=== PATIENT | male | born 1955 | race Caucasian/White ===

== ENCOUNTER → 2023-12-11 | Outpatient (REF) | payer OTHER, SELFPAY | LOC: DHSLP | PROVIDERS: ATTENDING PHYSICIAN Internal Medicine Critical Care Medicine; FAMILY PHYSICIAN Family Medicine | DX: G47.33 Obstructive sleep apnea (adult) (pediatric) (principal); R09.02 Hypoxemia | CPT/HCPCS: 95800 ==

== ENCOUNTER → 2024-01-08 08:26 | Outpatient (REF) | payer OTHER, SELFPAY | LOC: DHCBC/DCA 08:26 | PROVIDERS: ATTENDING PHYSICIAN Internal Medicine Cardiovascular Disease; FAMILY PHYSICIAN Family Medicine | DX: R07.89 Other chest pain (principal); I25.10 Atherosclerotic heart disease of native coronary artery without angina pectoris | CPT/HCPCS: 78452; 93017; A9500 ==

== ENCOUNTER → 2024-06-07 12:12 | Outpatient (REF) | payer OTHER, SELFPAY | LOC: HWRAD 12:12 | PROVIDERS: ATTENDING PHYSICIAN Nurse Practitioner Adult Health; FAMILY PHYSICIAN Family Medicine | DX: C34.91 Malignant neoplasm of unspecified part of right bronchus or lung (principal); R91.1 Solitary pulmonary nodule | CPT/HCPCS: 71250 ==

== ENCOUNTER → 2024-08-11 12:28 | Outpatient (REF) | payer OTHER, SELFPAY | LOC: HWRAD 12:28 | PROVIDERS: ATTENDING PHYSICIAN Nurse Practitioner Adult Health; FAMILY PHYSICIAN Family Medicine | DX: R91.1 Solitary pulmonary nodule (principal) | CPT/HCPCS: 71250 ==

== ENCOUNTER 2024-08-19 14:41 | Emergency (ER) | payer OTHER, SELFPAY ==
[2024-08-19 14:46] VITALS: BP 154/60
[2024-08-19 15:02] LABS: % Basophils 0.4 % (0-2); % Eosinophils 2.5 % (0-6); % Immature Granulocytes 0.4 % (0-0.5); % Lymphocytes 19.2 % (20.5-51.1); % Monocytes 9.8 % (1.7-9.3); % Neutrophils 67.7 % (42.2-75.2); Absolute Eosinophils 0.2 10^3/uL (0-0.7); Absolute Lymphocytes 1.3 10^3/uL (1.2-3.4); Absolute Monocytes 0.7 10^3/uL (0.1-0.6); Absolute Neutrophils 4.6 10^3/uL (1.4-6.5); Hematocrit 32.8 % (39.0-52.0); Hemoglobin 11.4 g/dL (13.0-18.0); Mean Corp Hgb Conc. 34.8 g/dL (33.0-37.0); Mean Corpuscular Hgb 33.7 pg (27.0-31.0); Mean Platelet Volume 8.6 fL (7.4-10.4); Nucleated Red Blood Cells % 0 % (-); Platelet Count 240 10^3/uL (130-400); Red Blood Cell Count 3.38 10^6/uL (4.70-6.10); Red Cell Dist. Width 13.2 % (11.5-14.5); White Blood Cell Count 6.8 10^3/uL (4.8-10.8)
[2024-08-19 15:20] LABS: ALT (SGPT) 20 U/L (0-50); AST (SGOT) 21 U/L (17-59); Albumin 4.2 g/dl (3.5-5.0); Alkaline Phosphatase 76 U/L (38-126); Blood Urea Nitrogen 8 mg/dl (9-20); Calcium 9.1 mg/dl (8.4-10.2); Carbon Dioxide 26 mmol/L (22-30); Chloride 98 mmol/L (98-107); Glucose 97 mg/dl (70-99); Lipase 60 U/L (23-300); Potassium 4.5 mmol/L (3.5-5.1); Sodium 132 mmol/L (135-145); Total Bilirubin 0.5 mg/dl (0.2-1.3); Total Protein 6.7 g/dl (6.3-8.2); eGFR > 60.00
--- NOTE | 2024-08-19 16:36 | ED.GENMED ---
History of Present Illness
General
Chief Complaint: Abdominal Symptoms
Time Seen by Provider: 08/19/24 16:35
History of Present Illness
History of Present Illness:
TIME OF INITIAL ENCOUNTER: 4:40 PM
HPI: The patient presents with a lump to the left groin. This has been getting a little bit worse over the last several days. When he lays down flat his symptoms go away. He has not had any vomiting. He also reports testicular pain since 1987.
EXAM:
GENERAL: Well appearing in no distress
HEENT: Moist oral mucosa
CARDIOVASCULAR: No murmurs, normal heart rate, regular rhythm, No chest wall tenderness
PULMONARY: No respiratory distress, breath sounds are clear and equal
ABDOMEN: Soft with no peritoneal signs, no tenderness, there is soft tissue prominence in the left inguinal region consistent with a fat-containing hernia
NEUROLOGIC: Excellent strength all extremities, no coordination deficits
PSYCHIATRIC: Appropriate mental status, normal insight and judgement
EXTREMITIES: Nontender, no edema, moves all extremities equally
SKIN: No rash, no lesions
NUMBER AND COMPLEXITY OF PROBLEMS ADDRESSED AT THE ENCOUNTER
� Chronic conditions affecting care: CAD, high blood pressure, hyperlipidemia, Marquez's esophagus/GERD, smoker
� Acute Exacerbation and/or Progression of Chronic Illness: This is an acute problem
� Differential Diagnosis includes: Inguinal hernia, no evidence for incarceration/strangulation based on physical examination, no evidence for bowel obstruction
AMOUNT AND/OR COMPLEXITY OF DATA TO BE REVIEWED AND ANALYZED
� I performed an independent evaluation of and my interpretation is:
EKG:
CT:
X-rays:
Laboratory Studies: White count normal, hemoglobin 11.4,, LFTs and lipase are normal
Other:
� Review of other/old records: I reviewed records, the patient was taken to the OR for appendectomy in 2020
� Clinical information was obtained by an independent historian: None needed
� Prescriptions/Medications Considered but not given:
� Further testing considered but not performed: Considered CT imaging however the patient has no evidence for bowel obstruction and has a soft reducible left inguinal hernia.
RISK OF COMPLICATIONS AND/OR MORBIDITY OR MORTALITY OF PATIENT MANAGEMENT
� Social determinants of health affecting care: Lives at home
� Discussion with other providers: Notified Dr. Alarcon of patient's presentation to arrange close outpatient follow-up[facility] and he is to call the office in the morning prior to discharge, I
� Escalation of care including admission/observation vs risk of discharge considered: The patient has a soft left inguinal hernia. There is no evidence for bowel obstruction based on exam and history. His white blood cell count
is normal.
ANY OTHER UPDATES:
Encouraged patient to follow-up with general surgeon�currently hernia is mild and very soft and is essentially reduced, encouraged to return here if worse or other concerns
Past History
Past History
ED Past Medical History: CAD, HTN, Hypercholesterolemia and Other
Social History
Tobacco: Smoker
Personal:
Living: with family
Employment: Employed
Phy Exam
Physical Exam
Physical Exam:
See HPI
Course
Orders/Labs/Results
Orders:
Orders
08/19/24 14:57
Complete Blood Count/With Diff Urgent
Comprehensive Metabolic Panel Urgent
Lipase Urgent
Abnormal Lab Results
08/19/24
14:57
RBC 3.38 L 10^6/uL
(4.70-6.10)
Hgb 11.4 L g/dL
(13.0-18.0)
Hct 32.8 L %
(39.0-52.0)
MCV 97.0 H fL
(80.0-94.0)
MCH 33.7 H pg
(27.0-31.0)
Absolute Monos (auto) 0.7 H 10^3/uL
(0.1-0.6)
Lymphocytes % 19.2 L %
(20.5-51.1)
Monocytes % 9.8 H %
(1.7-9.3)
Sodium 132 L mmol/L
(135-145)
BUN 8 L mg/dl
(9-20)
08/19/24 14:57
08/19/24 14:57
Vital Signs
Initial and Last Documented VS:
Initial Vital Signs
Temp Pulse Resp BP Pulse Ox
36.7 C 66 16 154/60 98
08/19/24 14:46 08/19/24 14:46 08/19/24 14:46 08/19/24 14:46 08/19/24 14:46
Last Documented Vital Signs
Temp Pulse Resp BP Pulse Ox
36.7 C 66 16 154/60 98
08/19/24 14:46 08/19/24 14:46 08/19/24 14:46 08/19/24 14:46 08/19/24 14:46
*Critical Care Note
Total Time (30-74mins, 75-104mins- exclusive of procedures): Not Applicable
ED Attending Note
-
Portions of this chart may have been created with voice recognition software.� Occasional wrong word or��sound alike� substitutions may have occurred due to the inherent limitations of voice recognition software.
Discharge Plan
Departure
Patient Disposition: Home (Routine Discharge)
Date of Disposition: 08/19/24
Time of Disposition: 17:16
Patient with high blood pressure during this ER visit?: Yes
Discharge Problem:
Inguinal hernia
Instructions: Groin hernias
Prescriptions:
No Action
carvedilol 3.125 MG tablet
3.125 mg PO BID
ascorbic acid (vitamin C) [Vitamin C] 500 MG tablet
500 mg PO DAILY
jzashdqw-mbu-BJ-lycopen-lutein [Centrum Silver] 1 EACH tablet
1 tab PO DAILY
tamsulosin 0.4 MG capsule
0.4 mg PO DAILY
aspirin 81 MG tablet,chewable
162 mg PO DAILY
atorvastatin 40 MG tablet
80 mg PO QPM
lisinopril 20 MG tablet
20 mg PO DAILY
oxdqjdznfz-mgmztdslalkza-lyxd [Fioricet] 1 EACH capsule
1 ea PO Q4HPRN PRN (Reason: headaches)
bupropion HCl [Wellbutrin SR] 150 MG tablet sustained-release 12 hr
150 mg PO DAILY
tramadol 50 MG tablet
50 mg PO DAILYPRN PRN (Reason: neck pain)
famotidine [Acid Controller] 20 MG tablet
20 mg PO DAILY
svivqqtnipv-yuqpkhqma-qidvlyzn [Trelegy Ellipta] 1 EACH blister with device
1 ea IH DAILY
Referrals:
Amos Alarcon MD [Active] - Tomorrow
Javan Cortez DO [Family Provider] -
Activity Restrictions/Additional Instructions:
I do feel a reducible soft left inguinal hernia�I therefore spoke to. Call his office tomorrow morning and let them know that the ER doctor did notify Dr. Alarcon and asked you to call his office to arrange follow-up. Return here if you have
worsening of your symptoms or if the hernia becomes 'stuck out'. Try to lay down frequently and you can initially try ice to the affected area if it starts to bulge out again. If you cannot get it to go back in, you must return here. Dr. Alarcon
also recommend that you get a truss belt/hernia belt�you can try to look for one of these either online or possibly at a local pharmacy.
Interventions
Interventions:
*Risk Screen - Suicide Last Done: 08/19/24 14:46
*General Assessment Last Done: 08/19/24 18:42
*Neglect/Abuse Screening Last Done: 08/19/24 14:46
*ED COVID-19 Vaccine History Last Done: 08/19/24 18:42
*Nursing Disposition Last Done: 08/19/24 18:46
HO-Tvoyli-Jpwqfcotru Assessment Last Done: 08/19/24 18:42
Discharge Date and Time
Discharge Date/Time: 08/19/24 18:47
Print Language: ZAMBIAN
== END 2024-08-19 18:47 | disposition home or self-care (01) ==
LOC: EMR 14:41
PROVIDERS: Student in an Organized Health Care Education/Training Program; EMERGENCY PHYSICIAN Emergency Medicine; FAMILY PHYSICIAN Family Medicine
DX: K40.90 Unilateral inguinal hernia, without obstruction or gangrene, not specified as recurrent (principal); I25.10 Atherosclerotic heart disease of native coronary artery without angina pectoris; I10 Essential (primary) hypertension; E78.00 Pure hypercholesterolemia, unspecified; F17.200 Nicotine dependence, unspecified, uncomplicated
CPT/HCPCS: 99283; 80053; 83690; 85025

== ENCOUNTER 2024-09-21 06:06 | Day surgery (SDC) | payer OTHER, SELFPAY ==
[2024-09-21] VITALS (13 sets, daily range): BP systolic 119–150; BP diastolic 60–82; BMI 29.8
[2024-09-21] MEDS: NORMOSOL-R/PLASMALYTE-A 1000 IV (06:45)
[2024-09-21] MEDS: TYLENOL 1000 MG PO (06:45)
--- NOTE | 2024-09-21 07:32 | W.SUR.PREOP ---
Pre-Operative Surgical Note
-
I have examined this patient prior to the performance of the scheduled procedure.
The patient's condition is unchanged from the time of the current History and
Physical and the patient is able to undergo the scheduled procedure.
--- NOTE | 2024-09-21 10:32 | W.IMMPOSTOP ---
Surgical Immed Post Op Note
-
Primary Surgeon: Amos Alarcon MD
Assisting Surgeon: None
Pre-op Diagnosis: Bilateral inguinal hernias
Post-op Diagnosis: Bilateral inguinal hernias, omental mass
Procedure Performed:
1. Robotic bilateral inguinal hernia repair with mesh
2. Excision of omental mass
Anesthesia Type: General
Specimen / Cultures:
1. Left cord lipoma x 2
2. Omental mass
Estimated Blood Loss: 7 cc
Complications: None
Operative Findings: Bilateral inguinal hernias. Left: Plastered over the inguinal space taken down with the peritoneal flap. There was a very large indirect inguinal hernia from a very large cord lipoma that appeared to be primarily emanating from
the retroperitoneal fat. This was reduced and excised as far back as possible without injuring the main blood supply to the testicles. There is also an additional smaller more standard cord lipoma that was excised completely. On the right side
multiple small defects were identified including small indirect defect, direct defect and femoral defect. A critical view of the MPO was achieved bilaterally and then reinforced with large 3D max uncoated polypropylene mesh. After closure of the
flaps, an omental mass that had been identified on entry was excised. Unclear if this was necrotic fat versus potentially a fecalith from his prior appendectomy surgery.
--- NOTE | 2024-09-21 10:38 | OR.RPT ---
Addendum entered and electronically signed by Amos Alarcon MD 09/27/24 09:04:
Date of operation should read 09/21/2024
Original Note:
Operative Report
Operative Report
Patient Name: Nacho Paz
: 1955
Date of Operation: 05/21/2025
Preoperative Diagnosis: Bilateral inguinal hernias
Postoperative Diagnosis:Bilateral inguinal hernias, omental mass
Procedure(s):
1. Robotic bilateral inguinal Hernia Repair with mesh, (NICOLE approach)
2. Excision of omental mass
Surgeon(s):
Dr. Alarcon
Kiln Cleaner(s):
NICHOL Lemon
Anesthesia: General
Estimated Blood Loss: 7 cc
Urine Output: None
Drains/Lines/Implants: Large 3D Max Bard mid weight uncoated polypropylene mesh x 2
Specimens:
1. Left cord lipoma x 2
2. Omental mass
Indication for surgery: The patient has a history of groin pain and noted on exam to have bilateral inguinal Hernia(s). Following review of therapeutic options they have elected to undergo a minimally invasive repair.
Operative Findings: Bilateral inguinal hernias noted. On the left the sigmoid colon was plastered over the inguinal space, this was taken down with the peritoneal flap. There was a very large indirect inguinal hernia from a very large cord lipoma
that appeared to be primarily emanating from the retroperitoneal fat. This was reduced and excised as far back as possible without injuring the main blood supply to the testicles. There is also an additional smaller more standard cord lipoma that
was excised completely. On the right side multiple small defects were identified including small indirect defect, direct defect and femoral defect. A critical view of the MPO was achieved bilaterally and then reinforced with large 3D max uncoated
polypropylene mesh. After closure of the flaps, an omental mass that had been identified on entry was excised. Unclear if this was necrotic fat versus potentially a fecalith from his prior appendectomy surgery.
Details of the operation:
The patient was brought to the Operating Room and placed in the supine position with the arms tucked. IV antibiotics were infused and Venodyne stockings placed. Following uneventful induction of general endotracheal anesthesia, the abdomen was
prepped and draped in the usual sterile fashion. The abdomen was entered using a Veress technique which required 1 pass, pneumoperitoneum to 15 mmHg was obtained without difficulty. An 8mm trochar was passed through the abdominal wall roughly 20 cm
cephalad to the inguinal canal. We then confirmed that no inadvertent injury was made while passing the trocar or Veress needle. We then placed two additional 8 mm ports in the left upper and right upper quadrants. We then docked the robot with a
Prograsper in the left hand port and monopolar scissors in the right. On the left no obvious hernia was visible as the sigmoid colon was plastered over the left inguinal space. On the right side there was multiple defects that could be noted
including an indirect and direct defect. We also noticed small simpson-brown 1-1/2 to 2 cm mass on the omentum of unclear etiology on the left side. We then began by creating a flap at the level of the ASIS laterally working our way medially to the
medial umbilical fold. Staying onto the peritoneum we were able to circumferentially dissect around the hernia sac and and peel it off of the underlying spermatic cord and testicular vessels, taking care to preserve them. Medially we identified
the midline pubis as well as William's ligament and ensured to dissect 2 cm below the pubic rim over the bladder. After exposure of the entire myopectineal orifice we identified and reduced: A medium sized indirect inguinal hernia, no direct
inguinal hernia, no femoral hernia, and 2 cord lipomas 1 small thin 1 and another very large emanating from the retroperitoneum that was reduced back to its takeoff vessels and ligated with 3 will Weck clips.
We then repeated the same dissection on the right side. He here we identified a small indirect defect as well as a direct defects. There is also a small femoral defect containing fat from the iliac tissue that was reduced slightly but could not be
excised due to its proximity to the iliac vessels. After achieving the critical view of the MPO bilaterally we then fixated two large 3D max mesh with a 2-0 Vicryl stitches at coopers medially and superior laterally. The flap was then closed with
a running 2-0 barbed monocryl suture ensuring that the tail was cut flush with the medial fat pad so that no barbs were exposed. During the closure of the flap an Angiocath was inserted and 20 cc of quarter percent Marcaine was instilled. The area
in the flap cavity was then evacuated of air confirming that the mesh was flush and there were no folds. A small rent in the peritoneum was noted and closed with 2-0 Vicryl. We then turned our attention to the small omental mass that seemed almost
embedded in the mesentery. This was carefully excised and removed along with the cord lipoma specimens using a 5 mm Endo Catch bag. All needles and instruments were then removed and the robot was undocked. The abdomen was then desufflated, and
pneumoperitoneum evacuated. All skin sites were then closed with 4-0 Monocryl followed by Dermabond. Counts were correct and overall, the patient tolerated the procedure well and was taken to the Recovery Room postoperatively in stable condition.
I was the attending physician and performed the procedure with assistance of the PA above. The assistance of NICHOL Lemon was required due to the complexity of the procedure. During the procedure Lindsey assisted with port placement, instrument
and needle exchanges, and closure of the wound. I was present for all portions of the case, excluding skin closure.
Amos Alarcon MD
--- NOTE | 2024-09-21 11:54 | SUR.PHASEII ---
patient comfortable, taking po liquids, vss, aware that he needs to void prior to discharge. Also advised to use CPAP with any rest periods today.
--- NOTE | 2024-09-21 12:15 | SUR.PHASEI ---
Reviewed teaching, Dr Alarcon visits, explained surgery and and plan of care.
== END 2024-09-21 13:15 | disposition home or self-care (01) ==
LOC: SDS 06:06
PROVIDERS: ATTENDING PHYSICIAN Surgery
DX: K40.20 Bilateral inguinal hernia, without obstruction or gangrene, not specified as recurrent (principal); K63.89 Other specified diseases of intestine
CPT/HCPCS: 49650; 88304; 88305; 88311; C1781

== ENCOUNTER → 2024-10-11 08:17 | Outpatient (REF) | payer OTHER, SELFPAY | LOC: HWRCS 08:17 | PROVIDERS: ATTENDING PHYSICIAN Internal Medicine Cardiovascular Disease; FAMILY PHYSICIAN Family Medicine | DX: I25.10 Atherosclerotic heart disease of native coronary artery without angina pectoris (principal) | CPT/HCPCS: 93306 ==

== ENCOUNTER → 2024-11-08 11:52 | Outpatient (REF) | payer OTHER, SELFPAY | LOC: HWRAD 11:52 | PROVIDERS: ATTENDING PHYSICIAN Internal Medicine Critical Care Medicine; FAMILY PHYSICIAN Family Medicine | DX: C34.91 Malignant neoplasm of unspecified part of right bronchus or lung (principal); J21.9 Acute bronchiolitis, unspecified | CPT/HCPCS: 71250 ==

== ENCOUNTER 2025-02-01 01:05 | Emergency (ER) | payer OTHER, SELFPAY ==
[2025-02-01 01:07] VITALS: BP 90/64
[2025-02-01 02:17] VITALS: BMI 29.0
[2025-02-01 02:30] VITALS: BP 125/62
--- NOTE | 2025-02-01 02:30 | ED.GENMED ---
History of Present Illness
General
Chief Complaint: Foreign Body Removal
Source: patient
Exam Limitations: none
Time Seen by Provider: 02/01/25 02:18
Nursing documentation reviewed up to this point in time: agreed with
History of Present Illness
History of Present Illness:
Patient is a 69-year-old male who presents to the emergency department with concerns of a bug in his right ear. Patient states he saw a fly go past his face earlier this evening and thinks he may have landed in his ear. This occurred around
midnight and he reports pain in his right ear. He states he was frantically dropping up and down and screaming attempting to get the bug out of his ear. He tried to put his finger in to get the bug out however he feels he may have pushed it deeper
into his ear.
By arrival to the ED�patient states his symptoms have essentially improved. He no longer has any pain in his right ear. He is unsure if the bug may have already come out however came for further evaluation.
Patient has no other concerns today.
Past History
Past History
ED Past Medical History: CAD, HTN, Hypercholesterolemia and Other
Social History
Tobacco: Smoker
Personal:
Living: with family
Employment: Employed
Review of Systems
Review of Systems
Allergies reviewed?: Yes
All Other Systems: ROS reviewed and negative except as documented in HPI and ROS
Phy Exam
Physical Exam
Physical Exam:
Vitals: Patient's vital signs are stable. Afebrile
General: Patient is well appearing, no acute distress. Nontoxic appearing
Skin: Warm and dry, no rashes or lesions
Head: Normocephalic, atraumatic
Ears: Bilateral external auditory canals patent with visualized TM and clear landmarks. No evidence of foreign body bilaterally. No evidence of TM perforation. No preauricular or mastoid tenderness. No purulent drainage or any surrounding
erythema.
Throat: Protecting airway
Neck: Normal ROM, no cervical spine tenderness
Cardiac: Regular rate
Pulm: No apparent respiratory distress
Abdomen: Nondistended
Extremities: No evidence of cyanosis or edema
Neuro: Grossly intact
Psychiatric: Normal affect.
Course
Vital Signs
Initial and Last Documented VS:
Initial Vital Signs
Temp Pulse Resp BP Pulse Ox
98.2 F 76 18 90/64 98
02/01/25 01:07 02/01/25 01:07 02/01/25 01:07 02/01/25 01:07 02/01/25 01:07
Last Documented Vital Signs
Temp Pulse Resp BP Pulse Ox
98.2 F 76 18 125/62 98
02/01/25 01:07 02/01/25 01:07 02/01/25 01:07 02/01/25 02:30 02/01/25 02:33
MDM/Problems Addressed
Differential Diagnosis Includes:
Not limited to: Foreign body, abrasion, etc.
MDM/Problems Addressed:
69-year-old male presents to the emergency department after experiencing pain in his right ear, along with an abnormal sensation and concerned that a bug may have floated into his ear. He states he saw a fly in front of his face prior to onset of
symptoms. He was unable to manually extract suspected bug. Patient states symptoms seemed to improve as he was arriving to the emergency department. By my evaluation � patient has no remaining ear pain or foreign body sensation. Hedenies any recent
trauma or other injuries. His vital signs are stable. On exam � very thorough otoscopic exam of ears bilaterally without evidence of foreign body or bug. Auditory canals patent with visualized TM and clear landmarks. No evidence of TM perforation.
No surrounding erythema, warmth, or evidence of infection.
Ultimately � no evidence of foreign body/bug in right ear while in emergency department. It is possible that bug had flown out prior to emergency department. Stable for discharge home with close monitoring at home, primary follow up. Gave info for
ENT if foreign body sensation persists. Advised to monitor closely for signs of infection. Patient comfortabel with plan. All questions answered.
Chronic conditions affecting care:
N/A
Acute Exacerbation and/or Progression of Chronic Illness:
N/A
*Pulse Oximetry
SaO2: 98
Oxygen Mode of Delivery: Room air
Patient hypoxic: no
*EKG
Interpreted by ED Provider?: NA
*Specialty Development Consultant Interpretation
Rate: Specialty Development Consultant- N/A
*Critical Care Note
Total Time (30-74mins, 75-104mins- exclusive of procedures): Not Applicable
ED Attending Note
-
Portions of this chart may have been created with voice recognition software.� Occasional wrong word or��sound alike� substitutions may have occurred due to the inherent limitations of voice recognition software.
Discharge Plan
Departure
Patient Disposition: Home (Routine Discharge)
Date of Disposition: 02/01/25
Time of Disposition: 02:35
Patient with high blood pressure during this ER visit?: No
Discharge Problem:
Foreign body of ear, right
Instructions: Foreign Body in Ear (DC)
Prescriptions:
No Action
ascorbic acid (vitamin C) [Vitamin C] 500 MG tablet
500 mg PO DAILY
Centrum Silver 1 EACH tablet
1 tab PO DAILY
tamsulosin 0.4 MG capsule
0.4 mg PO HS
aspirin 81 MG tablet,chewable
81 mg PO DAILY
atorvastatin 40 MG tablet
80 mg PO QPM
lisinopril 20 MG tablet
20 mg PO BID
sijdaamiao-gsgactjlpkfnz-jvex [Fioricet] 1 EACH capsule
1 ea PO Q4HPRN PRN (Reason: headaches)
bupropion HCl [Wellbutrin SR] 150 MG tablet sustained-release 12 hr
300 mg PO DAILY
tramadol 50 MG tablet
50 mg PO DAILYPRN PRN (Reason: neck pain)
Trelegy Ellipta 1 EACH blister with device
1 ea IH DAILY
primidone 50 mg Tablet
50 mg PO HS
cetirizine 10 mg Tablet
10 mg PO HS
diltiazem HCl 180 mg Capsule,Extended Release 24hr
180 mg PO BID
ferrous sulfate [Iron (ferrous sulfate)] 325 mg (65 mg iron) Tablet
325 mg PO BID
gabapentin 300 mg Capsule
300 mg PO HS
omeprazole 20 mg Capsule,Delayed Release(Dr/Ec)
20 mg PO HS
finasteride 5 mg Tablet
5 mg PO HS
ezetimibe [Zetia] 10 mg Tablet
10 mg PO DAILY
tadalafil [Cialis] 5 mg Tablet
5 mg PO HS
mecobalamin (vitamin B12) 1,000 mcg Tablet,Chewable
1,000 mcg PO DAILY
Referrals:
Javan Cortez DO [Family Provider, Family Practice] - As needed
Clinton Rueda MD [Active, Otology] - As needed
Activity Restrictions/Additional Instructions:
RETURN TO THE EMERGENCY DEPARTMENT WITH ANY SEVERE PAIN IN RIGHT EAR, LOSS OF HEARING, ANY SIGNS OF INFECTION, WORSENING CURRENT SYMPTOMS, OR ANY OTHER
- As discussed as there was no evidence of a foreign body or bug in your right ear today. It may have come out on its own.
- Please follow-up with your primary care provider and/or ENT as needed for further management/evaluation
Monitor your symptoms closely and return to the emergency department any acute worsening/new symptoms or any signs of worsening infection
Interventions
Interventions:
*Risk Screen - Suicide Last Done: 02/01/25 01:07
*General Assessment Last Done: 02/01/25 02:17
*Neglect/Abuse Screening Last Done: 02/01/25 01:07
*ED- Fall Risk Assessment Last Done: 02/01/25 02:17
*ED COVID-19 Vaccine History Last Done: 02/01/25 02:17
*Nursing Disposition Last Done: 02/01/25 02:49
Discharge Date and Time
Discharge Date/Time: 02/01/25 02:50
Print Language: BENGALI
== END 2025-02-01 02:50 | disposition home or self-care (01) ==
LOC: EMR 01:05
PROVIDERS: EMERGENCY PHYSICIAN Emergency Medicine; FAMILY PHYSICIAN Family Medicine
DX: T16.1XXA Foreign body in right ear, initial encounter (principal); W44.F4XA Insect entering into or through a natural orifice, initial encounter; I25.10 Atherosclerotic heart disease of native coronary artery without angina pectoris; I10 Essential (primary) hypertension; E78.00 Pure hypercholesterolemia, unspecified; F17.200 Nicotine dependence, unspecified, uncomplicated
CPT/HCPCS: 99282

== ENCOUNTER → 2025-06-13 10:12 | Outpatient (REF) | payer OTHER, SELFPAY | LOC: HWRAD 10:12 | PROVIDERS: ATTENDING PHYSICIAN Nurse Practitioner Adult Health; FAMILY PHYSICIAN Family Medicine | DX: C34.91 Malignant neoplasm of unspecified part of right bronchus or lung (principal); R91.1 Solitary pulmonary nodule; T65.222A Toxic effect of tobacco cigarettes, intentional self-harm, initial encounter | CPT/HCPCS: 71250 ==